=== PATIENT | male | born 1955 | race Caucasian/White ===

== ENCOUNTER → 2017-07-26 | Day surgery (SDC) | payer OTHER ==
[~2017-07-26] VITALS: Ht 177.8 cm; Wt 95.0 kg
[~2017-07-26] MED LIST: 0.9% Sodium Chloride 1,000 ML IV PRN; No current meds; Sodium Chloride LOK Flush 10 mL Syringe IV PRN; fentaNYL-PF 50 mCg/mL 2 mL Inj IVPUSH PRN
[2017-07-26 12:48] VITALS: BP 134/90; PULSE 60; RESP 16; O2SAT 98
--- NOTE | 2017-07-26 14:05 | PCM.ENDCOL ---
Colonoscopy Date of Service: Jul 26, 2017 Physician Jerry Alfred MD Pre Procedure Diagnosis: Screening Post Procedure Dx & Findings: Polyp hemorrhoids Procedure Colonoscopy PROCEDURE IN DETAIL: Prep adequate Withdrawal time 12 minutes After unremarkable rectal examination the Olympus video colonoscope was inserted patient's anal canal and was advanced to cecum. Landmarks were identified including the ileocecal valve and appendiceal orifice. Scope was withdrawn systematically. Visualized colonic mucosa showed healthy shiny mucosa with normal healthy-appearing vasculature. In the ascending colon there were 2 polyps. The largest one was about 3-4 mm in size. This was removed completed with cold snare. The smallest was about a millimeter in size which was removed completely using cold forceps. In the sigmoid colon there are 2 polyps. Both about 2-3 mm in size which were both removed completely using cold snare. In the rectum retroflexion was done which showed hemorrhoids. Anal canal was inspected carefully on the way out and hemorrhoids noted. Impression Polyp 4 status post complete removal Hemorrhoids Recommendation Repeat colonoscopy 3 years Presedation Assessment Risks and Benefits Informed consent was obtained from the patient after all risks and benefits including but not limited to drug reaction, infection, pain, bleeding, perforation, as well as alternatives were discussed. Patient monitoring Continuous pulse oximetry, cardiac monitoring, blood pressure monitoring, IV access, and oxygen at 2L per nasal cannula. Periprocedural Fentanyl: Fentanyl 150mcg Incrementally Midazolam: Midazolam 6mg Incrementally Complications There were no periprocedural complications identified. Post Procedure Plan Post Procedure Recommendations 1. Restrict activities today. 2. Resume normal activities in the morning. 3. Resume medications. 4. Patient informed of normal post procedure side effects as bloating, drowsiness, blood streaking in the stool. 5. average risk CRCS. If colon polyps come back as: -Hyperplastic- can repeat colonoscopy in 10 years -Tubular adenoma- repeat colonoscopy in 5 years -Tubulovillous/villous adenoma- repeat colonoscopy in 3 years -If any dysplasia- return to clinic as soon as possible 6. Please don't hesitate to call me with any questions. Jerry Alfred MD Jul 26, 2017 14:05
[2017-07-26 14:07] VITALS: BP 114/78; PULSE 54; RESP 12; O2SAT 94
[2017-07-26 14:18] VITALS: BP 120/75; PULSE 57; RESP 12; O2SAT 92
--- NOTE | 2017-07-28 15:11 | PATH ---
SURGICAL PATHOLOGY Attending Physician:Jerry Alfred M.D. CASE STATUS: Signed Out PATIENT NAME: JESSICA CRUZ PID: [id number] : 1955 DATE COLLECTED:07/26/2017 00:00 SPECIMEN: 1: Colon, Polyp 2: Colon, Polyp CLINICAL HISTORY: 1). ASCENDING COLON POLYPS X2 2). SIGMOID POLYP X2 FINAL DIAGNOSIS: 1. Ascending Colon, Polyps x2, Biopsies: Tubular adenoma x1; negative for high-grade dysplasia. Sessile serrated adenoma x1. 2. Sigmoid Colon, Polyps, Biopsies: Tubular adenoma x1. Hyperplastic polyp x1. Superficial portion of colorectal mucosa x1 with no diagnostic abnormality. ICD10: K63.5 GROSS DESCRIPTION: The specimen is received in two formalin filled containers labeled with the patient's name. 1). The specimen is labeled "ascending polyps x2" and consists of 2 portions of tissue which aggregate to 0.4 x 0.4 x 0.3 CM. The specimen is entirely submitted in cassette 1A. 2). The specimen is labeled "sigmoid polyp" and consists of 3 portions of tissue which aggregate to 0.3 x 0.3 x 0.2 CM. The specimen is entirely submitted in cassette 2A. 07/27/2017DC ICD-9 CODES: CPT CODES: 1: 45644 2: 76541 Electronically Signed Out Noa Joshi MD [facility] [address], [place] [address] Technical component performed at [facility], [address] [place] [address] Ave[address], [place], [address]
== END | disposition home or self-care (01) ==
LOC: END 00:38
PROVIDERS: ATTEND Internal Medicine
DX: Z12.11 Encounter for screening for malignant neoplasm of colon (principal); D12.2 Benign neoplasm of ascending colon; D12.5 Benign neoplasm of sigmoid colon; K64.8 Other hemorrhoids; I48.91 Unspecified atrial fibrillation; G47.30 Sleep apnea, unspecified
CPT/HCPCS: 45380; 45385; G0500; J2250; J3010; J7030